=== PATIENT | male | born 1945 | race African-American/Black ===

== ENCOUNTER 2022-09-09 17:18 | Emergency (ER) | payer MEDICARE ==
[~2022-09-09] VITALS: Ht 180.3 cm; Wt 78.0 kg
[2022-09-09 18:47] VITALS: BP 124/81
== END 2022-09-09 21:43 | disposition left against medical advice (07) ==
LOC: ER 17:18
DX: R06.02 Shortness of breath (principal); Z00.00 Encounter for general adult medical examination without abnormal findings; Z85.6 Personal history of leukemia; D64.9 Anemia, unspecified; R11.0 Nausea
CPT/HCPCS: 71045; 93005; 99283

== ENCOUNTER 2022-11-11 13:32 | Inpatient (IN) | payer MEDICARE ==
[~2022-11-11] VITALS: Ht 182.9 cm; Wt 95.3 kg
[2022-11-11] MEDS ORDERED: FUROSEMIDE 40MG/4ML VIAL IVP ONE (14:30)
[2022-11-11 15:19] LABS: BASOPHILS % 0.4 % (0.0-2.0); EOSINOPHILS % 0.3 % (0.0-5.0); HEMATOCRIT. 22.9 % (42.0-52.0); HEMOGLOBIN. 7.4 g/dL (14.0-18.0); LYMPHOCYTES % 26.3 % (20.0-50.0); MEAN CORPUSCULAR HEMOGLOBIN 32.5 pg (28.0-32.0); MEAN CORPUSCULAR VOLUME 100.8 fL (80.0-94.0); MEAN PLATELET VOLUME 9.1 fl (7.4-10.4); PLATELET 102 x1000/uL (130-400); RED BLOOD CELL COUNT 2.27 mill/uL (4.7-6.1); RED CELL DISTRIBUTION WIDTH 16.1 % (11.6-14.6)
[2022-11-11 15:28] LABS: CHLORIDE 110 mEq/L (98-107)
[2022-11-11 15:31] LABS: INR 1.7; PROTHROMBIN TIME 17.2 sec (9.6-11.0)
[2022-11-11] MEDS ORDERED: DOCUSATE SODIUM 100MG CAPSULE PO PRN (17:30)
[2022-11-11] MEDS ORDERED: CLONIDINE 0.1MG TABLET PO PRN (17:30)
[2022-11-11] MEDS ORDERED: MAGNESIUM/ALUMINUM HYDROXIDE/SIMETHICONE 30ML UDC PO PRN (17:30)
[2022-11-11] MEDS ORDERED: IPRATROPIUM/ALBUTEROL 0.5-3(2.5)MG/3ML NEB NEB PRN (17:30)
[2022-11-11] MEDS ORDERED: ONDANSETRON HCL 4MG/2ML INJ IV PRN (17:30)
[2022-11-11] MEDS ORDERED: TAMSULOSIN HCL 0.4MG SR CAPSULE PO NR (17:30)
[2022-11-11] MEDS ORDERED: NALOXONE HCL 0.4MG/ML VIAL IV PRN (18:00)
[2022-11-11 18:12] LABS: CLARITY URINE CLEAR (CLEAR); COLOR URINE YELLOW (YELLOW); KETONES URINE NEGATIVE (NEGATIVE); LEUKOCYTE ESTERASE URINE NEGATIVE (NEGATIVE); NITRITE URINE NEGATIVE (NEGATIVE); OCCULT BLOOD URINE NEGATIVE (NEGATIVE); PROTEIN URINE NEGATIVE (NEGATIVE); SPECIFIC GRAVITY URINE 1.008 (1.005-1.030)
[2022-11-11 18:24] LABS: FOLIC ACID (FOLATE) SERUM >20 ng/mL ng/mL (>5.38)
[2022-11-11 18:30] VITALS: BP 114/71
[2022-11-11 18:31] LABS: VITAMIN B12 SERUM 1069 pg/mL (211-911)
[2022-11-11] MEDS: MORPHINE SULFATE 2 MG/ML CPJ (NOT FOR IM USE) IV PRN (18:32)
[2022-11-11 18:38] LABS: CARCINO EMBRYONIC ANTIGEN 5.6 ng/ml; PROSTRATE SPECIFIC AG TOTAL 0.04 ng/mL (0.0-4.0)
[2022-11-11 19:24] LABS: PHOSPHORUS 3.5 mg/dL (2.5-4.9)
[2022-11-11 20:00] VITALS: BP 118/63
[2022-11-11] MEDS: OXYCODONE HCL 5MG TABLET PO PRN (20:47)
[2022-11-11] MEDS: ATORVASTATIN CALCIUM 40MG TABLET PO SCH (21:57)
[2022-11-11] MEDS: MIRTAZAPINE 15MG TABLET PO SCH (21:57)
[2022-11-11] MEDS: GABAPENTIN 100MG CAPSULE PO SCH (21:58)
[2022-11-11] MEDS: FAMOTIDINE 20MG/2ML VIAL IV SCH (21:58)
[2022-11-12] VITALS (7 sets, daily range): BP systolic 90–112; BP diastolic 49–81
[2022-11-12 00:04] LABS: D-DIMER 1.88 mg/L FEU (<0.50); INR 1.8; PROTHROMBIN TIME 18.3 sec (9.6-11.0)
[2022-11-12 00:05] LABS: CREATINE KINASE MB FRACTION 3.1 ng/mL (0.5-3.6)
[2022-11-12] MEDS: MORPHINE SULFATE 2 MG/ML CPJ (NOT FOR IM USE) IV PRN (00:41)
[2022-11-12] MEDS: OXYCODONE HCL 5MG TABLET PO PRN (02:34)
[2022-11-12 05:00] LABS: CHLORIDE 110 mEq/L (98-107)
[2022-11-12 05:16] LABS: HDL CHOLESTEROL 10 mg/dL (40-59); LDL CHOLESTEROL 18 mg/dL (5-100); T4 FREE 0.71 ng/dL (0.76-1.46)
[2022-11-12] MEDS: GABAPENTIN 100MG CAPSULE PO SCH ×3 (06:13→20:46)
[2022-11-12] MEDS ORDERED: CEFTRIAXONE 500 MG in DEXTROSE 5% WATER 50 ML IV SCH (08:30)
[2022-11-12] MEDS: ZINC SULFATE 220 MG ( 50 ) CAPSULE PO SCH (10:07)
[2022-11-12] MEDS: FINASTERIDE 5MG TABLET PO SCH (10:08)
[2022-11-12] MEDS: MULTIVITAMINS,THER W-MINERALS TABLET PO SCH (10:08)
[2022-11-12] MEDS: APIXABAN 5 MG TABLET PO SCH ×2 (10:08→17:38)
[2022-11-12] MEDS: LEVOTHYROXINE SODIUM 50MCG TABLET PO SCH (10:08)
[2022-11-12] MEDS: CLOPIDOGREL 75MG TABLET PO SCH (10:08)
[2022-11-12] MEDS: ASCORBIC ACID 500 MG TABLET PO SCH (10:08)
[2022-11-12] MEDS: ASPIRIN 325MG EC TABLET PO SCH (10:08)
[2022-11-12] MEDS: FOLIC ACID 1MG TABLET PO SCH (10:08)
[2022-11-12] MEDS: FERROUS SULFATE 325MG TABLET PO SCH ×3 (10:08→17:38)
[2022-11-12 11:40] LABS: *AMPHETAMINES SCREEN URINE NEGATIVE (NEGATIVE); *BARBITURATES SCREEN URINE NEGATIVE (NEGATIVE); *BENZODIAZEPINES SCREEN URINE NEGATIVE (NEGATIVE); *COCAINE SCREEN URINE NEGATIVE (NEGATIVE); CANNABINOID URINE SCREEN PRESUMTIVE POSITIVE (NEGATIVE); METHADONE URINE SCREEN NEGATIVE (NEGATIVE); OPIATES URINE SCREEN NEGATIVE (NEGATIVE); PHENCYCLIDINE URINE SCREEN NEGATIVE (NEGATIVE)
[2022-11-12] MEDS: CEFTRIAXONE 1,000 MG in DEXTROSE 5% WATER 50 ML IV SCH (11:59)
[2022-11-12 17:30] LABS: CLARITY URINE CLEAR (CLEAR); COLOR URINE DARK YELLOW (YELLOW); KETONES URINE NEGATIVE (NEGATIVE); LEUKOCYTE ESTERASE URINE NEGATIVE (NEGATIVE); NITRITE URINE NEGATIVE (NEGATIVE); OCCULT BLOOD URINE NEGATIVE (NEGATIVE); PH URINE 5.5 (4.5-8.0); PROTEIN URINE NEGATIVE (NEGATIVE); SPECIFIC GRAVITY URINE 1.012 (1.005-1.030)
[2022-11-12 17:45] LABS: *AMPHETAMINES SCREEN URINE NEGATIVE (NEGATIVE); *BARBITURATES SCREEN URINE NEGATIVE (NEGATIVE); *BENZODIAZEPINES SCREEN URINE NEGATIVE (NEGATIVE); *COCAINE SCREEN URINE NEGATIVE (NEGATIVE); CANNABINOID URINE SCREEN PRESUMTIVE POSITIVE (NEGATIVE); METHADONE URINE SCREEN NEGATIVE (NEGATIVE); OPIATES URINE SCREEN PRESUMTIVE POSITIVE (NEGATIVE); PHENCYCLIDINE URINE SCREEN NEGATIVE (NEGATIVE)
[2022-11-12] MEDS: ATORVASTATIN CALCIUM 40MG TABLET PO SCH (20:46)
[2022-11-12] MEDS: MIRTAZAPINE 15MG TABLET PO SCH (20:46)
[2022-11-12 21:18] LABS: MEAN CORPUSCULAR HEMOGLOBIN 32.8 pg (28.0-32.0); MEAN CORPUSCULAR VOLUME 98.3 fL (80.0-94.0); MEAN PLATELET VOLUME 9.6 fl (7.4-10.4); PLATELET 99 x1000/uL (130-400); RED BLOOD CELL COUNT 1.98 mill/uL (4.7-6.1); RED CELL DISTRIBUTION WIDTH 15.9 % (11.6-14.6)
[2022-11-12 21:35] LABS: HEMATOCRIT. 19.5 % (42.0-52.0); HEMOGLOBIN. 6.5 g/dL (14.0-18.0)
[2022-11-12 22:06] LABS: PLATELET ESTIMATE DECREASED
[2022-11-13] VITALS (14 sets, daily range): BP systolic 90–119; BP diastolic 51–80
[2022-11-13] MEDS: MORPHINE SULFATE 2 MG/ML CPJ (NOT FOR IM USE) IV PRN (02:27)
[2022-11-13 05:46] LABS: BASOPHILS % 0.6 % (0.0-2.0); EOSINOPHILS % 1.3 % (0.0-5.0); LYMPHOCYTES % 37.3 % (20.0-50.0); MEAN CORPUSCULAR HEMOGLOBIN 32.8 pg (28.0-32.0); MEAN CORPUSCULAR VOLUME 96.6 fL (80.0-94.0); MEAN PLATELET VOLUME 9.2 fl (7.4-10.4); MONOCYTES % 12.5 % (2.0-8.0); NEUTROPHILS % 48.3 % (40.0-76.0); PLATELET 90 x1000/uL (130-400); RED BLOOD CELL COUNT 1.74 mill/uL (4.7-6.1)
[2022-11-13 06:07] LABS: CHLORIDE 111 mEq/L (98-107)
[2022-11-13 06:15] LABS: HEMATOCRIT. 16.8 % (42.0-52.0); HEMOGLOBIN. 5.7 g/dL (14.0-18.0)
[2022-11-13 06:21] LABS: INR 2.1; PROTHROMBIN TIME 21.5 sec (9.6-11.0)
[2022-11-13] MEDS: GABAPENTIN 100MG CAPSULE PO SCH ×3 (06:23→21:15)
[2022-11-13] MEDS: FERROUS SULFATE 325MG TABLET PO SCH ×3 (09:41→17:29)
[2022-11-13] MEDS: CEFTRIAXONE 1,000 MG in DEXTROSE 5% WATER 50 ML IV SCH (09:41)
[2022-11-13] MEDS: FINASTERIDE 5MG TABLET PO SCH (09:41)
[2022-11-13] MEDS: ASCORBIC ACID 500 MG TABLET PO SCH (09:41)
[2022-11-13] MEDS: ZINC SULFATE 220 MG ( 50 ) CAPSULE PO SCH (09:41)
[2022-11-13] MEDS: FOLIC ACID 1MG TABLET PO SCH (09:41)
[2022-11-13] MEDS: ASPIRIN 325MG EC TABLET PO SCH (09:41)
[2022-11-13] MEDS: MULTIVITAMINS,THER W-MINERALS TABLET PO SCH (09:41)
[2022-11-13] MEDS: LEVOTHYROXINE SODIUM 50MCG TABLET PO SCH (09:41)
[2022-11-13] MEDS: CLOPIDOGREL 75MG TABLET PO SCH (09:41)
[2022-11-13] MEDS: APIXABAN 5 MG TABLET PO SCH (09:41)
[2022-11-13] MEDS ORDERED: POTASSIUM CHLORIDE INJ 40 MEQ in DEXT 5% WATER 250 ML IV ONE (15:30)
[2022-11-13] MEDS: KCL 20MEQ/100ML X 2 FOR TOTAL KCL 40MEQ/200ML IV SCH (19:00)
[2022-11-13] MEDS: ATORVASTATIN CALCIUM 40MG TABLET PO SCH (21:15)
[2022-11-13] MEDS: MIRTAZAPINE 15MG TABLET PO SCH (21:15)
[2022-11-13] MEDS: FAMOTIDINE 20MG/2ML VIAL IV SCH (21:16)
[2022-11-13] MEDS: PHYTONADIONE 5 MG/5ML ORAL SYRINGE PO SCH (21:16)
[2022-11-14] VITALS (9 sets, daily range): BP systolic 95–111; BP diastolic 62–70
[2022-11-14] MEDS: KCL 20MEQ/100ML X 2 FOR TOTAL KCL 40MEQ/200ML IV SCH (01:01)
[2022-11-14] MEDS ORDERED: KCL 20MEQ/100ML X 2 FOR TOTAL KCL 40MEQ/200ML IV SCH (02:45)
[2022-11-14] MEDS: GABAPENTIN 100MG CAPSULE PO SCH ×3 (05:10→21:09)
[2022-11-14] MEDS: MULTIVITAMINS,THER W-MINERALS TABLET PO SCH (08:38)
[2022-11-14] MEDS: LEVOTHYROXINE SODIUM 50MCG TABLET PO SCH (08:39)
[2022-11-14] MEDS: ASCORBIC ACID 500 MG TABLET PO SCH (08:39)
[2022-11-14] MEDS: ZINC SULFATE 220 MG ( 50 ) CAPSULE PO SCH (08:39)
[2022-11-14] MEDS: FERROUS SULFATE 325MG TABLET PO SCH ×3 (08:39→17:19)
[2022-11-14] MEDS: FINASTERIDE 5MG TABLET PO SCH (08:39)
[2022-11-14] MEDS: FOLIC ACID 1MG TABLET PO SCH (08:39)
[2022-11-14] MEDS: PHYTONADIONE 5 MG/5ML ORAL SYRINGE PO SCH (08:41)
[2022-11-14 11:04] LABS: BASOPHILS % 0.8 % (0.0-2.0); EOSINOPHILS % 0.9 % (0.0-5.0); HEMATOCRIT. 27.2 % (42.0-52.0); HEMOGLOBIN. 9.4 g/dL (14.0-18.0); LYMPHOCYTES % 31.4 % (20.0-50.0); MEAN CORPUSCULAR HEMOGLOBIN 32.4 pg (28.0-32.0); MEAN CORPUSCULAR VOLUME 93.3 fL (80.0-94.0); MEAN PLATELET VOLUME 9.2 fl (7.4-10.4); NEUTROPHILS % 52.9 % (40.0-76.0); PLATELET 92 x1000/uL (130-400); RED BLOOD CELL COUNT 2.91 mill/uL (4.7-6.1); RED CELL DISTRIBUTION WIDTH 16.6 % (11.6-14.6)
[2022-11-14] MEDS: FAMOTIDINE 20MG/2ML VIAL IV SCH ×2 (11:20→21:09)
[2022-11-14] MEDS: CEFTRIAXONE 1,000 MG in DEXTROSE 5% WATER 50 ML IV SCH (11:20)
[2022-11-14 11:31] LABS: CHLORIDE 109 mEq/L (98-107)
[2022-11-14 11:49] LABS: TOTAL IRON BINDING CAPACITY 91 ug/dL (250-450)
[2022-11-14 14:01] LABS: FERRITIN 1039 ng/mL (22-322)
[2022-11-14 14:12] LABS: HEPATITIS B SURFACE ANTIGEN NEGATIVE
[2022-11-14] MEDS: ATORVASTATIN CALCIUM 40MG TABLET PO SCH (21:09)
[2022-11-14] MEDS: MIRTAZAPINE 15MG TABLET PO SCH (21:09)
[2022-11-15] VITALS: BP 100/67
[2022-11-15 04:00] VITALS: BP 107/63
[2022-11-15] MEDS: GABAPENTIN 100MG CAPSULE PO SCH ×3 (05:10→21:02)
[2022-11-15 07:44] VITALS: BP 92/58
[2022-11-15] MEDS: ZINC SULFATE 220 MG ( 50 ) CAPSULE PO SCH (08:19)
[2022-11-15] MEDS: FOLIC ACID 1MG TABLET PO SCH (08:19)
[2022-11-15] MEDS: FINASTERIDE 5MG TABLET PO SCH (08:19)
[2022-11-15] MEDS: ASCORBIC ACID 500 MG TABLET PO SCH (08:19)
[2022-11-15] MEDS: FAMOTIDINE 20MG/2ML VIAL IV SCH ×2 (08:19→21:47)
[2022-11-15] MEDS: FERROUS SULFATE 325MG TABLET PO SCH ×3 (08:19→19:15)
[2022-11-15] MEDS: PHYTONADIONE 10 MG/10 ML ORALSYR PO SCH (08:19)
[2022-11-15] MEDS: MULTIVITAMINS,THER W-MINERALS TABLET PO SCH (08:19)
[2022-11-15] MEDS: LEVOTHYROXINE SODIUM 50MCG TABLET PO SCH (08:19)
[2022-11-15] MEDS: CEFTRIAXONE 1,000 MG in DEXTROSE 5% WATER 50 ML IV SCH (09:36)
[2022-11-15 11:06] VITALS: BP 136/71
[2022-11-15 15:40] VITALS: BP 119/62
[2022-11-15 16:28] LABS: CHLORIDE 110 mEq/L (98-107)
[2022-11-15 16:40] LABS: BASOPHILS % 0.6 % (0.0-2.0); EOSINOPHILS % 0.7 % (0.0-5.0); HEMATOCRIT. 27.5 % (42.0-52.0); HEMOGLOBIN. 8.8 g/dL (14.0-18.0); MEAN CORPUSCULAR HEMOGLOBIN 31.9 pg (28.0-32.0); MEAN CORPUSCULAR VOLUME 99.4 fL (80.0-94.0); MEAN PLATELET VOLUME 9.4 fl (7.4-10.4); MONOCYTES % 14.4 % (2.0-8.0); NEUTROPHILS % 52.3 % (40.0-76.0); PLATELET 87 x1000/uL (130-400); RED BLOOD CELL COUNT 2.77 mill/uL (4.7-6.1); RED CELL DISTRIBUTION WIDTH 17.5 % (11.6-14.6)
[2022-11-15 20:00] VITALS: BP 107/73
[2022-11-15] MEDS: ATORVASTATIN CALCIUM 40MG TABLET PO SCH (20:41)
[2022-11-15] MEDS: MIRTAZAPINE 15MG TABLET PO SCH (20:41)
[2022-11-16] VITALS: BP 117/72
[2022-11-16 04:00] VITALS: BP 97/60
[2022-11-16] MEDS: GABAPENTIN 100MG CAPSULE PO SCH ×3 (05:48→21:33)
[2022-11-16 08:00] VITALS: BP 98/55
[2022-11-16] MEDS: FINASTERIDE 5MG TABLET PO SCH (08:56)
[2022-11-16] MEDS: ZINC SULFATE 220 MG ( 50 ) CAPSULE PO SCH (08:56)
[2022-11-16] MEDS: MULTIVITAMINS,THER W-MINERALS TABLET PO SCH (08:56)
[2022-11-16] MEDS: FERROUS SULFATE 325MG TABLET PO SCH ×3 (08:56→17:54)
[2022-11-16] MEDS: ASCORBIC ACID 500 MG TABLET PO SCH (08:57)
[2022-11-16] MEDS: FOLIC ACID 1MG TABLET PO SCH (08:57)
[2022-11-16] MEDS: LEVOTHYROXINE SODIUM 50MCG TABLET PO SCH (08:57)
[2022-11-16] MEDS: PHYTONADIONE 10 MG/10 ML ORALSYR PO SCH (08:57)
[2022-11-16] MEDS: FAMOTIDINE 20MG/2ML VIAL IV SCH (09:52)
[2022-11-16] MEDS: CEFTRIAXONE 1,000 MG in DEXTROSE 5% WATER 50 ML IV SCH (09:53)
[2022-11-16] MEDS: ACETAMINOPHEN 325MG TABLET PO PRN (11:13)
[2022-11-16 12:00] VITALS: BP 128/68
[2022-11-16 16:00] VITALS: BP 125/60
[2022-11-16] MEDS: SUCRALFATE 1G TABLET PO SCH ×2 (17:54→21:32)
[2022-11-16 20:00] VITALS: BP 102/65
[2022-11-16] MEDS: ATORVASTATIN CALCIUM 40MG TABLET PO SCH (21:32)
[2022-11-16] MEDS: FAMOTIDINE 20MG TABLET PO SCH (21:32)
[2022-11-16] MEDS: MIRTAZAPINE 15MG TABLET PO SCH (21:34)
[2022-11-17] VITALS: BP 109/71
[2022-11-17] MEDS: ACETAMINOPHEN 325MG TABLET PO PRN (00:42)
[2022-11-17 04:00] VITALS: BP 113/64
[2022-11-17] MEDS: GABAPENTIN 100MG CAPSULE PO SCH ×3 (06:32→22:03)
[2022-11-17 08:00] VITALS: BP 113/75
[2022-11-17] MEDS: SUCRALFATE 1G TABLET PO SCH ×4 (09:01→22:04)
[2022-11-17] MEDS: FERROUS SULFATE 325MG TABLET PO SCH ×3 (09:01→17:49)
[2022-11-17] MEDS: LEVOTHYROXINE SODIUM 50MCG TABLET PO SCH (09:02)
[2022-11-17] MEDS: FINASTERIDE 5MG TABLET PO SCH (09:02)
[2022-11-17] MEDS: ZINC SULFATE 220 MG ( 50 ) CAPSULE PO SCH (09:02)
[2022-11-17] MEDS: FOLIC ACID 1MG TABLET PO SCH (09:02)
[2022-11-17] MEDS: FAMOTIDINE 20MG TABLET PO SCH ×2 (09:02→22:04)
[2022-11-17] MEDS: ASCORBIC ACID 500 MG TABLET PO SCH (09:02)
[2022-11-17] MEDS: MULTIVITAMINS,THER W-MINERALS TABLET PO SCH (09:02)
[2022-11-17 12:00] VITALS: BP 106/65
[2022-11-17 16:00] VITALS: BP 115/75
[2022-11-17 20:00] VITALS: BP 116/75
[2022-11-17] MEDS: MIRTAZAPINE 15MG TABLET PO SCH (22:03)
[2022-11-17] MEDS: ATORVASTATIN CALCIUM 40MG TABLET PO SCH (22:04)
[2022-11-18] VITALS: BP 117/63
[2022-11-18 04:00] VITALS: BP 105/70
[2022-11-18] MEDS: GABAPENTIN 100MG CAPSULE PO SCH ×3 (06:27→21:37)
[2022-11-18 08:00] VITALS: BP 98/63
[2022-11-18] MEDS: LEVOTHYROXINE SODIUM 50MCG TABLET PO SCH (09:01)
[2022-11-18] MEDS: SUCRALFATE 1G TABLET PO SCH ×4 (09:01→20:18)
[2022-11-18] MEDS: ASCORBIC ACID 500 MG TABLET PO SCH (09:01)
[2022-11-18] MEDS: FOLIC ACID 1MG TABLET PO SCH (09:01)
[2022-11-18] MEDS: ZINC SULFATE 220 MG ( 50 ) CAPSULE PO SCH (09:02)
[2022-11-18] MEDS: FINASTERIDE 5MG TABLET PO SCH (09:02)
[2022-11-18] MEDS: FAMOTIDINE 20MG TABLET PO SCH ×2 (09:02→20:19)
[2022-11-18] MEDS: MULTIVITAMINS,THER W-MINERALS TABLET PO SCH (09:02)
[2022-11-18] MEDS: FERROUS SULFATE 325MG TABLET PO SCH ×3 (09:02→17:01)
[2022-11-18 12:00] VITALS: BP 119/83
[2022-11-18 16:00] VITALS: BP 123/74
[2022-11-18] MEDS: APIXABAN 5 MG TABLET PO SCH (17:01)
[2022-11-18 20:00] VITALS: BP 108/78
[2022-11-18] MEDS: ATORVASTATIN CALCIUM 40MG TABLET PO SCH (20:19)
[2022-11-18] MEDS: MIRTAZAPINE 15MG TABLET PO SCH (21:34)
[2022-11-19] VITALS: BP 110/77
[2022-11-19 04:00] VITALS: BP 102/69
[2022-11-19] MEDS: GABAPENTIN 100MG CAPSULE PO SCH ×3 (06:07→21:06)
[2022-11-19 08:00] VITALS: BP 114/74
[2022-11-19] MEDS: FINASTERIDE 5MG TABLET PO SCH (09:20)
[2022-11-19] MEDS: FERROUS SULFATE 325MG TABLET PO SCH ×3 (09:20→17:22)
[2022-11-19] MEDS: SUCRALFATE 1G TABLET PO SCH ×4 (09:21→21:04)
[2022-11-19] MEDS: ZINC SULFATE 220 MG ( 50 ) CAPSULE PO SCH (09:21)
[2022-11-19] MEDS: FAMOTIDINE 20MG TABLET PO SCH ×2 (09:21→21:04)
[2022-11-19] MEDS: APIXABAN 5 MG TABLET PO SCH ×2 (09:21→17:22)
[2022-11-19] MEDS: LEVOTHYROXINE SODIUM 50MCG TABLET PO SCH (09:21)
[2022-11-19] MEDS: ASCORBIC ACID 500 MG TABLET PO SCH (09:21)
[2022-11-19] MEDS: CLOPIDOGREL 75MG TABLET PO SCH (09:21)
[2022-11-19] MEDS: FOLIC ACID 1MG TABLET PO SCH (09:21)
[2022-11-19] MEDS: MULTIVITAMINS,THER W-MINERALS TABLET PO SCH (09:21)
[2022-11-19] MEDS: ACETAMINOPHEN 325MG TABLET PO PRN (11:25)
[2022-11-19 12:00] VITALS: BP 120/76
[2022-11-19 16:00] VITALS: BP 118/73
[2022-11-19 20:00] VITALS: BP 108/69
[2022-11-19] MEDS: MIRTAZAPINE 15MG TABLET PO SCH (21:04)
[2022-11-19] MEDS: ATORVASTATIN CALCIUM 40MG TABLET PO SCH (21:04)
[2022-11-20] VITALS: BP 112/70
[2022-11-20 04:00] VITALS: BP 106/67
[2022-11-20] MEDS: GABAPENTIN 100MG CAPSULE PO SCH ×2 (05:26→12:42)
[2022-11-20 08:00] VITALS: BP 139/79
[2022-11-20] MEDS: LEVOTHYROXINE SODIUM 50MCG TABLET PO SCH (08:28)
[2022-11-20] MEDS: CLOPIDOGREL 75MG TABLET PO SCH (09:16)
[2022-11-20] MEDS: FOLIC ACID 1MG TABLET PO SCH (09:16)
[2022-11-20] MEDS: MULTIVITAMINS,THER W-MINERALS TABLET PO SCH (09:16)
[2022-11-20] MEDS: SUCRALFATE 1G TABLET PO SCH ×4 (09:16→20:11)
[2022-11-20] MEDS: FINASTERIDE 5MG TABLET PO SCH (09:16)
[2022-11-20] MEDS: ZINC SULFATE 220 MG ( 50 ) CAPSULE PO SCH (09:16)
[2022-11-20] MEDS: APIXABAN 5 MG TABLET PO SCH ×2 (09:17→17:03)
[2022-11-20] MEDS: FERROUS SULFATE 325MG TABLET PO SCH ×3 (09:17→17:03)
[2022-11-20] MEDS: ASCORBIC ACID 500 MG TABLET PO SCH (09:17)
[2022-11-20] MEDS: FAMOTIDINE 20MG TABLET PO SCH ×2 (09:20→20:11)
[2022-11-20 12:00] VITALS: BP 90/62
[2022-11-20 16:00] VITALS: BP 100/78
[2022-11-20 17:42] VITALS: BP 100/78
[2022-11-20] MEDS: MIRTAZAPINE 15MG TABLET PO SCH (20:11)
[2022-11-20] MEDS: ATORVASTATIN CALCIUM 40MG TABLET PO SCH (20:11)
== END 2022-11-20 20:25 | DRG 808 ==
LOC: ER 13:32 → EDBEDREQ 15:10 → 7WST 16:30 → EDBEDREQTM 16:37 → EDBEDREQ 16:37
PROVIDERS: ADMIT Internal Medicine; ATTEND Internal Medicine
PROC: 30233N1 Transfusion of Nonautologous Red Blood Cells into Peripheral Vein, Percutaneous Approach (ICD-10-PCS; principal; 2022-11-13)
DX: D61.810 Antineoplastic chemotherapy induced pancytopenia (principal); I50.33 Acute on chronic diastolic (congestive) heart failure; C25.9 Malignant neoplasm of pancreas, unspecified; E46 Unspecified protein-calorie malnutrition; D68.9 Coagulation defect, unspecified; I11.0 Hypertensive heart disease with heart failure; E83.51 Hypocalcemia; R62.7 Adult failure to thrive; T45.1X5A Adverse effect of antineoplastic and immunosuppressive drugs, initial encounter; G62.9 Polyneuropathy, unspecified; I25.10 Atherosclerotic heart disease of native coronary artery without angina pectoris; R74.01 Elevation of levels of liver transaminase levels; D53.9 Nutritional anemia, unspecified; D69.6 Thrombocytopenia, unspecified; R29.6 Repeated falls; K76.0 Fatty (change of) liver, not elsewhere classified; Z79.899 Other long term (current) drug therapy; Z95.5 Presence of coronary angioplasty implant and graft; Z90.49 Acquired absence of other specified parts of digestive tract; Z79.01 Long term (current) use of anticoagulants; Z79.82 Long term (current) use of aspirin; Z85.07 Personal history of malignant neoplasm of pancreas; Z87.891 Personal history of nicotine dependence; Y92.89 Other specified places as the place of occurrence of the external cause; Z68.28 Body mass index [BMI] 28.0-28.9, adult
CPT/HCPCS: 36415; 71045; 74176; 76700; 80048; 80053; 80061; 80076; 80305; 81003; 82105; 82248; 82270; 82378; 82550; 82553; 82607; 82728; 82746; 83036; 83540; 83550; 83605; 83735; 83880; 84100; 84145; 84153; 84439; 84443; 84481; 84484; 85025; 85044; 85379; 86301; 86705; 86709; 86803; 86850; 86900; 86920; 87340; 93005; 93306; 93880; 93970; 97116; 97162; 97166; 97530; 99285; J0696; J1940; J2270; J3430; J3480; J3490; J7060; P9016; G0103